=== PATIENT | female | born 1985 | race American Indian/Alaskan Native ===

== ENCOUNTER 2021-02-19 18:43 | Outpatient (CLI) | payer OTHER ==
[2021-02-19 19:14] VITALS: BP 127/67
[2021-02-19] MEDS ORDERED: SIMETHICONE 80 MG CHEW TAB PO STA (21:03)
== END 2021-02-19 21:24 | disposition home or self-care (01) ==
LOC: TRG 18:43 → APU 18:46 → TRG 21:24
PROVIDERS: ATTEND Obstetrics & Gynecology
DX: O26.892 Other specified pregnancy related conditions, second trimester (principal); Z3A.24 24 weeks gestation of pregnancy
CPT/HCPCS: 59025